=== PATIENT | female | born 1980 | race Caucasian/White ===

== ENCOUNTER → 2019-03-12 11:29 | Outpatient (CLI) | payer SELFPAY ==
--- NOTE | 2019-03-12 11:33 | US_ITS ---
STUDY: SECOND AND THIRD TRIMESTER OBSTETRICAL ULTRASOUND REASON FOR EXAM: Female, 38 years old. anatomy assessment/screening. 3rd trimester. LMP: 07/13/2018 TECHNIQUE: Transabdominal PRIOR ULTRASOUND: None. FINDINGS: Single live intrauterine gestation, cephalic presentation, cardiac rate 150 bpm. Amniotic fluid index 20.8 cm, maximum vertical pocket 6.5 cm. Placenta grade 1, anterior, not low-lying. The cervix is not visualized. The maternal adnexa are not visualized. BIOMETRY: Measurement centimeters. BPD: 8.9: 36 weeks, 1 days HC: 33.1: 37 weeks, 6 days AC: 32.7: 36 weeks, 5 days FL: 7.2: 37 weeks, 0 days CI: 79% FL/BPD: 81% FL/AC: 22% HC/AC: 1.01 age by current US: 37 weeks, 0 days. DINORA by current US: 04/02/2019. Estimated weight: 3022 grams, +/- 441 grams, 95 %. Age by LMP: 34 weeks, 4 days. DINORA by LMP: 04/19/2019. ANATOMY: The anatomic survey is limited by advanced dates. Abdominal cord insertion not visualized. Intracranially, lateral ventricles not fully visualized. No apparent ventricular dilatation. Normal appearance of the evaluated portions of the choroid plexus. Normal appearance of the cerebellum, cisterna magna. Sagittal facial profile normal. Coronal facial features procedure normal, limited evaluation. 4 Cardiac chambers are visualized, grossly normal. Hemidiaphragms, stomach bubble, bladder bubble, three-vessel cord and kidneys appear normal. Partially obscured anterior abdominal wall, grossly normal. Partially obscured spine, evaluated portions exhibit appropriate segmentation without specific evidence of dysraphism. 4 extremity is are identified. US/OB Anatomy Scan IMPRESSION: No gross anatomic abnormality was observed, in limited survey. AUA 37 week 0 day, DINORA (AUA) 04/02/2019. No acute or maternal abnormality is identified. Electronically Signed: Andrew Romeo MD at 10:26 EDT Tel , Service support ,
[2019-03-12 13:54] LABS: Absolute Neutrophil Count 4.5 X10^3/uL (2.0-7.7); Eosinophil# 0.15 X10^3/uL; Eosinophils% 2.2 % (0-5); Hemoglobin 11.7 g/dl (12.0-15.0); Lymphocyte % 23.4 % (19-41); Mean Corp Hgb Conc 34.4 g/gl (32-36); Mean Corpuscular Hgb 30.7 pg (27.0-32.0); Mean Corpuscular Volume 89.2 fL (81-99); Monocyte% 8.8 % (0-10); Neutrophil # 4.47 X10^3/uL (2.7-7.7); Neutrophil % 65.3 % (47-70); Platelet Count 259 K/mm3 (150-450); RBC Distribution Width CV 13.6 % (11.6-14.6); RBC Distribution Width SD 43.4 fl (35.1-43.9); Red Blood Count 3.81 M/mm3 (4.2-5.4); White Blood Count 6.8 K/mm3 (4.4-11.0)
[2019-03-12 13:57] LABS: Differential Indicated SCAN CRITERIA MET; POSITIVE COUNT NO; POSITIVE DIFFERENTIAL NO; POSITIVE MORPHOLOGY YES
[2019-03-12 16:02] LABS: HIV - WCH Non-Reactive (Nonreactive); Rubella IgG 111.8 IU/mL
[2019-03-13 15:29] LABS: HEPATITIS B SURFACE AG Negative (Negative)
[2019-03-19 01:43] LABS: Rapid Plasmin Reagin (RPR) NONREACTIVE (NONREACTIVE)
== END ==
PROVIDERS: Referring Provider Obstetrics & Gynecology; Visit Provider Obstetrics & Gynecology
DX: O09.93 Supervision of high risk pregnancy, unspecified, third trimester (principal)
CPT/HCPCS: 36415; 76805; 83036; 85025; 86592; 86703; 86762; 86850; 86900; 87340

== ENCOUNTER 2019-06-17 06:59 | Day surgery (SDC) | payer SELFPAY ==
--- NOTE | 2019-06-11 04:09 | PCM.HPOB.BLA ---
- Problem List (1) Sterilization consult Status: Acute Comment: plan PPTL History and Physical Date of Admission: 06/17/19 Intake Vital Signs 06/10/19 Weight: 161 lb 6 oz 06/10/19 Blood Pressure 104/66 Intake Visit Reasons: preop Lap. Bilatater Salp. Is patient in pain?: No Allergies No Known Allergies Allergy (Verified 06/10/19 13:21) Medications vitamin#30 30 mg iron-10 mg iron-folic acid 1 mg-omg3 capsule cap PO cap 02/19/19 [History Confirmed 06/10/19] ascorbate calcium (vitamin C) 500 mg tablet 500 mg PO DAILY 06/10/19 [History Confirmed 06/10/19] Is last menstrual period known: No Post menopausal: No Patient : No : Yes PFSH Surgical History History of tonsillectomy (Resolved) Family History Mother Leukemia Father Bladder cancer Social History (Updated 06/10/19 @ 14:05 by Latrice Arredondo MD) Smoking Status: Never smoker alcohol intake: never substance use type: does not use caffeine: Yes what type of physical activity do you participate in: none additional social history: - Nacho HPI preop Lap. Bilatater Salp.: Details: YONAS COOPER is a 39 year old who presents for preoperative visit. she is , she had a delivery 2 months ago. Female Reproductive History Menopausal Symptoms: No night sweats Pregancy History 11 Elective abortions Hx Para 12 Spontaneous abortions Hx # Term Pregnancies Ectopic pregnancies Hx # Pregnancies Multiple births 1 # of living children Past Pregnancies Del. Date Name GA/Weeks Outcome Route Bth Weight Gen Labor Lgth Anesthesia Del Locatn Provider FOB 07/09/01 Marilyn 40 live - full term Female Home 01/26/03 Mesfin 40 live - full term Male none [facility] 05/27/04 Jose J live - full term Male none Home 11/18/07 Flaco [place] live - full term Male none Home 08/04/09 Royce live - full term Male none Home 11/30/10 Renny live - full term Male none Home 09/09/11 Freddy live - full term Male none [facility] 09/18/13 Kenton live - full term Male none [facility] 08/03/15 Marleny live - full term Female none [facility] 03/11/17 Kei live - full term Male none [facility] 04/06/18 Jody live - full term 7lbs 15oz Female Delivered at [facility] Delivery Date: 07/09/01 On 12/11/18 @ 16:19 Kate Fisher No issues during or delivery. Delivery Date: 01/26/03 On 12/11/18 @ 16:39 Kate Fisher No issues during or delivery. Delivery Date: 05/27/04 On 12/11/18 @ 16:39 Kate Fisher No issues during or delivery. Delivery Date: 11/18/07 On 12/11/18 @ 16:39 Kate Fisher No issues during or delivery Delivery Date: 08/04/09 On 12/11/18 @ 16:38 Kate Fisher No issues during or delivery. Delivery Date: 11/30/10 On 12/11/18 @ 16:37 Kate Fisher No issues during or delivery. Delivery Date: 09/09/11 On 12/11/18 @ 16:36 Kate Fisher No issues during or delivery. Delivery Date: 09/18/13 On 12/11/18 @ 16:36 Kate Fisher No issues during or delivery. Delivery Date: 08/03/15 On 12/11/18 @ 16:36 Kate Fisher No issues during or delivery. Delivery Date: 03/11/17 On 12/11/18 @ 16:36 Kate Fisher No issues during or delivery. Delivery Date: 04/06/18 No notes to display ROS Const Constitutional: Denies fatigue, night sweats, weight gain or weight loss ENT ENT: Reports system reviewed and no additional complaints, except as docu Cardio Card: Denies chest pain Resp Resp: Denies cough or dyspnea GI GI: Reports as per HPI; denies abdominal pain, constipation, nausea or vomiting : Denies nipple discharge, urinary frequency, urinary incontinence, urinary hesitancy, urinary urgency, vaginal discharge, vaginal dryness, vaginal odor or vaginal itching Musc Musc: Denies joint pain, back pain or muscle weakness Skin Skin/Breast: Denies hair loss, change in hair, dry skin, breast lump, breast pain, breast skin changes or nipple discharge Neuro Neuro: Reports system reviewed and no additional complaints, except as docu Psych Psych: Reports system reviewed and no additional complaints, except as docu Endo Endo: Denies cold intolerance, excessive sweating, heat intolerance or increased thirst Juan/Lymph Hematologic/Lymphatic: Denies easy bleeding, Denies easy bruising, Denies enlarged lymph nodes Exam Const General: cooperative, healthy appearing, comfortable, no acute distress, well developed Orientation: alert [facility] Head: normal to inspection, normocephalic Ears: hearing grossly normal bilaterally, external ears normal Nose: external nose normal, nares normal Face and sinus: normal facial exam Neck Neck: normal visual inspection, no lymphadenopathy Thyroid: thyroid normal Chest Chest palpation & inspection: normal inspection of the chest Resp Effort & Inspection: normal respiratory effort Auscultation: clear to auscultation bilaterally Cardio Rate: regular rate Rhythm: regular rhythm Heart Sounds: S1 normal, S2 normal GI Inspection: normal to inspection, non-distended Palpation: soft, no hepatosplenomegaly Musc Other: gross motor intact no deficits, full bilateral strength Skin General: no rashes or lesions noted Neuro General: alert, awake, moves all extremities, no focal motor deficits Motor: muscle tone normal throughout Extrem General: normal to inspection, no pedal edema Psych Appearance: grossly normal Mental Status: mental status grossly normal Affect: normal affect Speech and Movement: speech and movement normal Assessment & Plan Problems 1. Sterilization Z30.2 Plan plan laparoscopic bilateral salpingectomy. discussed surgical risks including risks of anesthesia, infection, bleeding, injury to bowel, bladder or blood vessels, and patient wishes to proceed with surgery. Coding Level of Care Code No Charge Diagnoses Sterilization Z30.2 UPDATE- I have seen the patient and performed any clinically relevant updates to the history and physical exam. Latrice Arredondo MD
[2019-06-17] VITALS (8 sets, daily range): BP systolic 73–113; BP diastolic 43–73; PULSE 55–80; RESP 12–16; TEMP 35.6–36.6; O2SAT 80–100; BMI 26.7
[2019-06-17 07:29] LABS: Internal QC Validated? YES +Cl - CLEAR BKGD; Pregnancy, Urine Negative Negative
[2019-06-17 07:35] LABS: Hematocrit 40.9 % (37-47); Hemoglobin 13.7 g/dL (12.0-15.0); Mean Corp Hgb Conc 33.5 g/dL (32-36); Mean Corpuscular Hgb 29.5 pg (27.0-32.0); Mean Corpuscular Volume 88.1 fL (81-99); Mean Platelet Vol. 8.5 fl (6.2-12.0); Platelet Count 237 K/mm3 (150-450); RBC Distribution Width CV 13.1 % (11.6-14.6); RBC Distribution Width SD 42.2 fl (35.1-43.9); Red Blood Count 4.64 M/mm3 (4.2-5.4); White Blood Count 5.1 K/mm3 (4.4-11.0)
[2019-06-17] MEDS: Bupivacaine 0.25% 30 ML Vial (09:17)
--- NOTE | 2019-06-17 09:33 | OP.PCM_ITS ---
Problem List (1) Sterilization consult Status: Acute Comment: plan PPTL Report of Operation Date of Procedure: 06/17/19 Pre-Operative Diagnosis: sterilization Post-Operative Diagnosis: same Surgery/Procedure Performed:: Laparoscopic tubal ligation via Filshie clip Description of Surgical Findings:: Normal uterus tubes left simple ovarian cyst 4 cm Type of Anesthesia:: General Special Medications: none Specimen's removed: none Drains: none Estimated Blood Loss (mL): 10 Fluids Replaced: crystalloid Description of Procedure: Patient was taken in the operating room and was placed under general anesthesia was prepped and draped in normal sterile fashion in the dorsal lithotomy position. Bladder was drained of clear urine and SCDs were on preoperatively. Uterus was sounded and a uterine manipulator was placed after dilating. Attention was then paid to the abdominal portion of the procedure and the umbilicus was elevated with towel clamps and injected with Marcaine and after a 5 mm incision was made and the Veress needle was entered into the abdomen confirmed to be intra-abdominal with a low opening pressure of less than 5 mmHg. Abdomen was insufflated with CO2 gas and a 5 mm optical trocar was placed under direct visualization. An 8 mm port was placed under direct visualization in the suprapubic area. Uterus was well visualized and bilateral fallopian tubes iden tified and Filshie clips were applied bilaterally across the mid interstitial portion of the fallopian tube. Correct placement was confirmed and bilateral ovaries were noted to be within normal limits. Liver and upper abdomen were visualized notably within normal limits and no other gross after maladies were seen in the abdomen. All instruments removed from the abdomen after gas was desufflated. Port sites were closed with 3-0 Monocryl Steri's and op sites were applied. All instruments removed from the vagina and patient was awoken and taken recovery in stable condition. Grafts/Implants Used: filshie clips x 2 - Complications none
--- NOTE | 2019-06-17 09:34 | DCINST_ITS ---
Discharge Diet: No Restrictions - Increase fluid intake for the next 48 hours. Discharge Activity: Return to Normal Activity, May Drive - when you are no longer taking narcotic pain medications., May Shower, May Take a Tub Bath - in 7 days Additional Activity Instructions:: Ambulate often the next week after surgery. Nothing in the vagina for 5 days. Call your doctor if your incision/area has: Continuous Slow Oozing, Sudden Increased Bleeding, Increased Pain/ Swelling, Increased Redness, Foul Smelling Discharge Call your doctor if you observe: Fever of 101 or Higher Allergies/Adverse Reactions: Allergies No Known Allergies Allergy (Verified 06/17/19 07:22) Primary Care Physician: Care Physician,No Primary [Primary Care Provider] - Test Results: Test results from this visit will be discussed in further detail at your follow- up appointment, if applicable. Please Follow Up With: Latrice Arredondo MD - [phone]
== END 2019-06-17 12:06 | disposition home or self-care (01) ==
LOC: SDC 07:03 → AC 07:04
PROVIDERS: Referring Provider Obstetrics & Gynecology; Visit Provider Obstetrics & Gynecology
PROC: (CPT 58661; principal; 2019-06-17 08:25)
DX: Z30.2 Encounter for sterilization (principal); N83.292 Other ovarian cyst, left side
CPT/HCPCS: 00851; 58671; 81025; 85027; 86850; 86900; J7120; J2405